=== PATIENT | male | born 1995 | race Caucasian/White ===

== ENCOUNTER 2016-07-10 16:55 | Emergency (ER) | payer BC, OTHER ==
[~2016-07-10] VITALS: Ht 180.3 cm; Wt 76.2 kg
[2016-07-10 17:04] VITALS: TEMP 36.9; Ht 180.3 cm; Wt 76.2 kg
[2016-07-10] MEDS ORDERED: SODIUM CHLORIDE 0.9% 1000ML 1,000 ML IV STA (17:18)
[2016-07-10] MEDS ORDERED: OPTIRAY 320 IV PRN (17:30)
[2016-07-10 17:53] LABS: BASO % 0.3 %; BASO ABS # 0.03 K/uL (0-0.2); COMPLETE YES; EOS % 0.6 %; HEMATOCRIT 42.5 % (42-52); IG% 0.2 %; LYMPH % 25.2 %; LYMPH ABS # 2.79 K/uL (1.2-3.4); MEAN CELL VOLUME 89.7 fL (80-100); MEAN CORPUSCULAR HEMOGLOBIN 31.9 pg (25-34); MEAN CORPUSCULAR HGB CONC 35.5 g/dl (32-36); MEAN PLATELET VOLUME 10.8 fL (7.4-10.4); MONO % 11.7 %; PLATELET COUNT 288 K/uL (130-400); RED BLOOD COUNT 4.74 M/uL (4.7-6.1); WHITE BLOOD COUNT 11.07 K/uL (4.8-10.8)
[2016-07-10 17:57] LABS: ISTAT CREATININE 0.9 mg/dl (0.6-1.3); ISTAT IONIZED CALCIUM 1.17 mmol/l (1.12-1.32)
[2016-07-10 18:02] LABS: URINE APPEARANCE CLEAR (CLEAR); URINE BILIRUBIN NEG (NEG); URINE COLOR DK YELLOW; URINE NITRITE NEG (NEG); URINE SPECIFIC GRAVITY 1.031 (1.000-1.030); UROBILINOGEN NEG (NEG); ZZUR CULT IF INDIC CLEAN CATCH NO
[2016-07-10 18:08] LABS: INR 1.1 (0.9-1.1); PARTIAL THROMBOPLASTIN RATIO 1.1; PROTHROMBIN TIME (PATIENT) 11.9 SECONDS (9.0-12.0)
[2016-07-10 18:08] LABS: MANUAL MICROSCOPIC REQUIRED? NO; REVIEW REQ? NO
[2016-07-10 18:19] LABS: BUN/CREATININE RATIO 14.5 (10-20); CALCIUM 9.3 mg/dl (8.5-10.1); CREATININE 1.1 mg/dl (0.60-1.40); POTASSIUM 3.3 mmol/L (3.5-5.1)
[2016-07-10 18:22] LABS: ALB/GLOB RATIO 1.4 (0.9-2)
--- NOTE | 2016-07-10 18:57 | DIAGNOSTIC IMAGING REPORT ---
CT OF THE ABDOMEN AND PELVIS WITH CONTRAST CLINICAL HISTORY: Left upper quadrant abdominal pain following injury. COMPARISON STUDY: None. TECHNIQUE: Following IV administration of 94 mL of Optiray-320, axial images of the abdomen and pelvis were obtained from the lung bases to the proximal femurs. Images were reviewed in the axial, sagittal, and coronal planes. IV contrast was administered without complication. CT DOSE: 264.64 mGy.cm FINDINGS: There is a suspected acute nondisplaced fracture of the anterior left ninth rib. No pneumothorax is shown within visualized portions of the chest. Lung bases are clear. There is no evidence of traumatic injury to the liver, spleen, adrenal glands, kidneys or pancreas. The caliber and wall thickness of small and large bowel are normal. There is no hemoperitoneum. No pneumoperitoneum is present. No acute lumbar spine or pelvic fracture is identified. IMPRESSION: 1. Acute nondisplaced fracture of the anterior left ninth rib. 2. No acute traumatic findings within the abdomen or pelvis. Electronically signed by: Adama Fuentes M.D. 07/10/2016 6:56 PM Dictated Date/Time: 07/10/2016 6:50 PM
[2016-07-10 18:59] VITALS: BP 121/81; PULSE 82; O2SAT 98
--- NOTE | 2016-07-10 19:05 | DIAGNOSTIC IMAGING REPORT ---
LEFT RIBS UNILATERAL WITH PA CHEST CLINICAL HISTORY: Posterior left rib pain status post injury. COMPARISON STUDY: No previous studies for comparison. FINDINGS: There is no pneumothorax or pleural effusion. Lungs are clear. Cardiac size is normal. Mediastinal contours are normal. There is an acute nondisplaced fracture the anterior left ninth rib. IMPRESSION: No pneumothorax. Acute nondisplaced fracture of the anterior left ninth rib. Electronically signed by: Adama Fuentes M.D. 07/10/2016 7:03 PM Dictated Date/Time: 07/10/2016 6:39 PM
[2016-07-10] MEDS ORDERED: HYDR-5688 PO (19:30)
--- NOTE | 2016-07-10 19:31 | EMERGENCY ROOM VISIT NOTE ---
History First contact with patient: 17:11 Chief Complaint: RIB PAIN Stated Complaint: BROKEN RIBS, TROUBLE BREATHING History of Present Illness The patient is a 20 year old male who presents to the Emergency Department by private vehicle for evaluation of his LEFT sided rib pain. He reports that earlier this morning while in judo class, a heavier gentleman rolled on top of him and his belt with a knot caught him in the lower portion of his ribs. He reports hearing an audible "pop". He reports having pain which was mild after the event. His symptoms progressively worsened throughout the day including difficulty with breathing and taking a deep breath. He reports no history of previous fracture or injury of the affected ribs. The patient rates his current discomfort as a 5/10. He takes no other daily medications. He denies any fevers, chills, chest pain, palpitations, short of breath, hemoptysis, nausea, vomiting, or lower abdominal pain. He denies any blood in his stool or urine. Review of Systems A complete 10-point Review of Systems was discussed with the patient, with pertinent positives and negatives listed in the History of Present Illness. All remaining Review of Systems questions can be considered negative unless otherwise specified. Past Medical/Surgical History Surgical Problems: (1) Hx of tonsillectomy Family History Diabetes mellitus FH: cancer Social History Smoking Status: Current Some Day Smoker Smokeless Tobacco Use: No Alcohol Use: occasionally Drug Use: none Marital Status: single Housing Status: lives with roommate Occupation Status: employed Current/Historical Medications Scheduled PRN Hydrocodone/Acetaminophen 5MG/325MG (Champion 5MG/325MG), 1-2 TABLET PO Q4H PRN for Pain Allergies Coded Allergies: Acetaminophen (Unverified Allergy, Unknown, UNKNOWN, 07/10/16) Oxycodone (Verified Adverse Reaction, Intermediate, vomiting, 07/10/16) Physical Exam Vital Signs Date Time Temp Pulse Resp B/P Pulse Ox O2 Delivery O2 Flow Rate FiO2 07/10/16 18:59 82 20 121/81 98 Room Air 07/10/16 17:04 36.9 96 16 141/83 98 Room Air Pain Rating (0-10): 5 Physical Exam VITAL SIGNS - Vital signs and nursing notes were reviewed. GENERAL - 20-year-old male appearing his stated age. Communicates well with provider and answers questions appropriately. LUNGS - Chest wall symmetric without accessory muscle use, intercostals retractions, or central cyanosis. No flail chest or depressed fractures noted. No paradoxical chest wall movements noted. Moderate tenderness to palpation across the anterior and lateral LEFT lower chest fischer. Mild tenderness with deep inspiration noted against the examiner's applied pressure to the lateral chest fischer. Normal vesicular breath sounds CTA B/L. No wheezes, rales, or rhonchi appreciated. CARDIAC - RRR with S1/S2. No murmur, rubs, or gallops appreciated. ABDOMEN - Abdominal contour flat without pulsations or visible masses. BS normoactive all four quadrants. No rebound tenderness or guarding noted. Negative Durham's or Gonsales Carreon's Signs. Moderate tenderness to palpation noted to the LEFT upper quadrant. NEUROLOGIC - Cranial nerves II through XII grossly intact. Sensory intact to light touch throughout. PSYCH - A&Ox3 and cooperates fully with examiner. Pt is very pleasant and interacts well with examiner. Medical Decision & Procedures ER Provider Diagnostic Interpretation: Radiological imaging and reports were reviewed by myself. Radiologist's Interpretation as follows: LEFT RIBS UNILATERAL WITH PA CHEST CLINICAL HISTORY: Posterior left rib pain status post injury. COMPARISON STUDY: No previous studies for comparison. FINDINGS: There is no pneumothorax or pleural effusion. Lungs are clear. Cardiac size is normal. Mediastinal contours are normal. There is an acute nondisplaced fracture the anterior left ninth rib. IMPRESSION: No pneumothorax. Acute nondisplaced fracture of the anterior left ninth rib. CT OF THE ABDOMEN AND PELVIS WITH CONTRAST CLINICAL HISTORY: Left upper quadrant abdominal pain following injury. COMPARISON STUDY: None. TECHNIQUE: Following IV administration of 94 mL of Optiray-320, axial images of the abdomen and pelvis were obtained from the lung bases to the proximal femurs. Images were reviewed in the axial, sagittal, and coronal planes. IV contrast was administered without complication. CT DOSE: 264.64 mGy.cm FINDINGS: There is a suspected acute nondisplaced fracture of the anterior left ninth rib. No pneumothorax is shown within visualized portions of the chest. Lung bases are clear. There is no evidence of traumatic injury to the liver, spleen, adrenal glands, kidneys or pancreas. The caliber and wall thickness of small and large bowel are normal. There is no hemoperitoneum. No pneumoperitoneum is present. No acute lumbar spine or pelvic fracture is identified. IMPRESSION: 1. Acute nondisplaced fracture of the anterior left ninth rib. 2. No acute traumatic findings within the abdomen or pelvis. Laboratory Results 07/10/16 17:35 Red Blood Count 4.74, Mean Corpuscular Volume 89.7, Mean Corpuscular Hemoglobin 31.9, Mean Corpuscular Hemoglobin Concent 35.5, Mean Platelet Volume 10.8, Neutrophils (%) (Auto) 62.0, Lymphocytes (%) (Auto) 25.2, Monocytes (%) (Auto) 11.7, Eosinophils (%) (Auto) 0.6, Basophils (%) (Auto) 0.3, Neutrophils # (Auto ) 6.87, Lymphocytes # (Auto) 2.79, Monocytes # (Auto) 1.29, Eosinophils # (Auto ) 0.07, Basophils # (Auto) 0.03 07/10/16 17:35 Test 07/10/16 17:32 07/10/16 17:35 07/10/16 17:41 Bedside Hemoglobin 16.0 g/dl (14.0-18.0) Bedside Hematocrit 47 % (42-52) Bedside Sodium 143 mEq/L (135-144) Bedside Potassium 3.3 mEq/L (3.3-5.0) Bedside Chloride 101 mEq/L (101-112) Bedside Total CO2 25 mEq/l (24-31) Bedside Blood Urea Nitrogen 16 mg/dl (7-18) Bedside Creatinine 0.9 mg/dl (0.6-1.3) Bedside Glucose (other) 86 mg/dl (70-99) Bedside Ionized Calcium (Parth) 1.17 mmol/l (1.12-1.32) White Blood Count 11.07 K/uL (4.8-10.8) Red Blood Count 4.74 M/uL (4.7-6.1) Hemoglobin 15.1 g/dL (14.0-18.0) Hematocrit 42.5 % (42-52) Mean Corpuscular Volume 89.7 fL (80-100) Mean Corpuscular Hemoglobin 31.9 pg (25-34) Mean Corpuscular Hemoglobin Concent 35.5 g/dl (32-36) Platelet Count 288 K/uL (130-400) Mean Platelet Volume 10.8 fL (7.4-10.4) Neutrophils (%) (Auto) 62.0 % Lymphocytes (%) (Auto) 25.2 % Monocytes (%) (Auto) 11.7 % Eosinophils (%) (Auto) 0.6 % Basophils (%) (Auto) 0.3 % Neutrophils # (Auto) 6.87 K/uL (1.4-6.5) Lymphocytes # (Auto) 2.79 K/uL (1.2-3.4) Monocytes # (Auto) 1.29 K/uL (0.11-0.59) Eosinophils # (Auto) 0.07 K/uL (0-0.5) Basophils # (Auto) 0.03 K/uL (0-0.2) RDW Standard Deviation 40.3 fL (36.4-46.3) RDW Coefficient of Variation 12.3 % (11.5-14.5) Immature Granulocyte % (Auto) 0.2 % Immature Granulocyte # (Auto) 0.02 K/uL (0.00-0.02) Prothrombin Time 11.9 SECONDS (9.0-12.0) Prothromb Time International Ratio 1.1 (0.9-1.1) Activated Partial Thromboplast Time 29.1 SECONDS (21.0-31.0) Partial Thromboplastin Ratio 1.1 Anion Gap 12.0 mmol/L (3-11) Est Creatinine Clear Calc Drug Dose 113.1 ml/min Estimated GFR () 110.6 Estimated GFR (Non- 95.5 BUN/Creatinine Ratio 14.5 (10-20) Calcium Level 9.3 mg/dl (8.5-10.1) Total Bilirubin 0.5 mg/dl (0.2-1) Aspartate Amino Transf (AST/SGOT) 31 U/L (15-37) Alanine Aminotransferase (ALT/SGPT) 36 U/L (12-78) Alkaline Phosphatase 80 U/L (45-117) Total Protein 8.3 gm/dl (6.4-8.2) Albumin 4.9 gm/dl (3.4-5.0) Globulin 3.4 gm/dl (2.5-4.0) Albumin/Globulin Ratio 1.4 (0.9-2) Lipase 177 U/L (73-393) Urine Color DK YELLOW Urine Appearance CLEAR (CLEAR) Urine pH 5.0 (4.5-7.5) Urine Specific [place] 1.031 (1.000-1.030) Urine Protein NEG (NEG) Urine Glucose (UA) NEG (NEG) Urine Ketones TRACE (NEG) Urine Occult Blood NEG (NEG) Urine Nitrite NEG (NEG) Urine Bilirubin NEG (NEG) Urine Urobilinogen NEG (NEG) Urine Leukocyte Esterase NEG (NEG) Medications Administered Medications (Trade) Dose Ordered Sig/[place] Route Start Time Stop Time Status Last Admin Dose Admin Sodium Chloride (Nss 1000ml) 1,000 ml @ 250 mls/hr Q4H STAT IV 07/10/16 17:18 07/10/16 21:17 DC 07/10/16 17:18 250 MLS/HR ED Course Patient was seen and evaluated by myself. Labs were drawn, saline lock in place. Patient was hydrated with a 1000 mL normal saline bolus. X-ray of the ribs and chest were obtained. CT of the abdomen and pelvis with IV contrast was ordered. Laboratory results demonstrate no acute leukocytosis, worrisome anemia, or bandemia. The patient has no significant electrolyte abnormalities. Urinalysis is a pleasant unremarkable. Imaging studies as above. Laboratory results and imaging studies were reviewed with the patient who acknowledges understanding. The patient declines a think for pain while in the emergency department. He was provided a short prescription of Champion to be used for breakthrough pain at home. He was provided an incentives barometer and educated on its use. He was educated on worrisome symptoms for return visit to the emergency department. Patient discharged home in good condition. Medical Decision Given the patient's presentation and exam findings, I did elect to perform the above-mentioned workup. The patient presents today with reproducible pain in the LEFT upper quadrant as well as to the anterior LEFT sided lower ribs. Given the location of symptoms and trauma, I did elect to perform the above- mentioned workup to rule out possibility of underlying intra-abdominal injury. Labs are essentially unremarkable. CT and x-ray confirms anterior LEFT sided ninth rib fracture. The patient is not hypoxic. He is not tachycardic. There is no pneumothorax seen on x-ray. The patient was provided an incentive spirometer for home as well as Champion for break through pain. He was educated on worrisome symptoms for return visit to the emergency department. Patient discharged home in good condition. In the evaluation and treatment of this patient, the following differential diagnoses were considered: Pneumothorax, hemothorax, pneumonia, consolidation, nondistended fracture, splenic laceration, intra-abdominal injury, amongst others. Impression Primary Impression: Left rib fracture Departure Information Dispostion Home / Self-Care Condition GOOD Prescriptions Hydrocodone/Acetaminophen 5MG/325MG (Champion 5MG/325MG) Tab 1-2 TABLET PO Q4H Y for Pain, #10 TAB For Initial Treatment Prov: Phliip Jha PA-C 07/10/16 Referrals No Doctor, Assigned (PCP) Patient Instructions Fx Rib, Incentive Spirometer Dc, [facility] Additional Instructions You have been treated in the Emergency Department for your LEFT 9th Rib Fracture. You have been prescribed Champion to be used for pain control. This is a narcotic medication. You cannot drive or consume alcohol while on this medicine. This medicine should only be used for pain that cannot be controlled with over-the- counter pain medicines. For pain control, you can use the following [id number] medicines (if >12 yo): - Regular strength (325mg/tab) Tylenol (acetaminophen) 2 tabs every 4-6 hours as needed. Do not exceed 12 tablets in a 24 hour period. Avoid taking more than 4 grams (4000 mg) of Tylenol per day. This includes any other sources of acetaminophen you may take on a regular basis. - Regular strength (200 mg/tab) Advil (ibuprofen) 1-2 tabs every 4-6 hours as needed. Do not exceed a dose of 3200 mg per day. If this is an acute injury, ice can be applied to the area of pain for the first 3 days to help decrease pain and inflammation. After the first 3 days, a heating pad can be used over the area for continued soothing relief. You should schedule a follow-up appointment in 2-3 days with your Primary Care Provider for further evaluation and treatment of your rib pain. Hugging a pillow while coughing or sneezing can help to reduce your pain. Be sure to continue taking occasional deep breaths to help expand your lungs to reduce the risk of developing pneumonia. Please use the incentive spirometer several times per hour while awake to help prevent the development of pneumonia. Return to the Emergency Department if your current symptoms worsen despite treatment course outlined above, or if you develop any of the following symptoms : intractable pain despite aforementioned treatment course, loss of control of your bowel or bladder, numbness or tingling in your groin, or development of a fever. Problem Qualifiers Primary Impression: Left rib fracture Encounter type: initial encounter Rib fracture type: single rib Fracture type: closed Qualified Codes: S22.32XA - Fracture of one rib, left side, initial encounter for closed fracture
== END 2016-07-10 19:42 | disposition home or self-care (01) ==
LOC: C.EDB 16:56 → C.EDD 19:42
DX: S22.32XA Fracture of one rib, left side, initial encounter for closed fracture (principal); W22.8XXA Striking against or struck by other objects, initial encounter; Y93.75 Activity, martial arts; F17.210 Nicotine dependence, cigarettes, uncomplicated; Z83.3 Family history of diabetes mellitus